=== PATIENT | female | born 1965 | race Caucasian/White ===

== ENCOUNTER 2017-05-16 12:30 | Day surgery (SDC) | payer OTHER ==
[~2017-05-16] VITALS: Ht 167.6 cm; Wt 70.1 kg
[~2017-05-16 12:30] MED LIST: 0.9% Sodium Chloride 1,000 ML IV SCH; CETI10CA PO; CYCL5TAB PO; FLUT9.9S NS; Sodium Chloride LOK Flush 10 mL Syringe IV PRN; fentaNYL-PF 50 mCg/mL 2 mL Inj IVPUSH PRN
[2017-05-16 14:00] VITALS: BP 111/69; PULSE 69; RESP 16; O2SAT 100
[2017-05-16 15:02] VITALS: BP 87/48; PULSE 68; RESP 14; O2SAT 97
[2017-05-16 15:10] VITALS: BP 105/65; PULSE 80; RESP 12; O2SAT 97
--- NOTE | 2017-05-16 16:03 | ENDO ---
[address] [address] ENDOSCOPY PROCEDURE PATIENT: GAL MILLER : 1965 MR#: [id number] ADMIT: 05/16/2017 JOB ID: [id number] DATE: 05/16/2017 PROCEDURE: Colonoscopy. INDICATIONS: Screening. The patient's ASA classification is 1. Mallampati score is 2. MEDICATIONS: 1. Versed 6 mg. 2. Fentanyl 100 mcg. INSTRUMENT USED: PCF H 180 AL PREPARATION QUALITY: Was good. PROCEDURE DETAILS: After informed consent was obtained, the patient was brought into the GI suite, where she was placed on oxygen via nasal cannula and monitored with continuous pulse oximeter, telemetry and blood pressure monitoring. A time-out was performed. Then, she was placed in the left lateral decubitus position and medications were administered for sedation. Digital rectal examination was performed, which was unremarkable. The colonoscope was then inserted into the rectum and advanced under direct visualization to the cecum, which was identified by the presence of the ileocecal valve and appendiceal orifice. Once the cecum was reached, the colonoscope was withdrawn back into the rectum as the mucosa and lumen were examined. In the rectum, retroflexion was performed. Following retroflexion, remaining air in the rectum was suctioned, and the procedure was completed. FINDINGS: 1. In the ascending colon, there was an approximately 4 mm sessile polyp that was removed with a cold snare. 2. In the transverse colon, there was approximately 3 mm sessile polyp that was removed with a cold snare. IMPRESSION: 1. Ascending colon polyp. 2. Transverse colon polyp. RECOMMENDATIONS: 1. Fiber rich diet. 2. Repeat colonoscopy pending polyp pathology results. COMPLICATIONS: None. ESTIMATED BLOOD LOSS: Less than 5 mL.
--- NOTE | 2017-05-19 12:08 | PATH ---
SURGICAL PATHOLOGY Attending Physician:Dannielle Espinoza CASE STATUS: Signed Out PATIENT NAME: GAL MILLER PID: [id number] : 1965 DATE COLLECTED:05/16/2017 00:00 SPECIMEN: 1: Colon, Polyp 2: Colon, Polyp CLINICAL HISTORY: 1). ASCENDING COLON POLYP 2). TRANSVERSE COLON POLYP FINAL DIAGNOSIS: 1.ASCENDING COLON POLYP: SESSILE SERRATED ADENOMA. 2.TRANSVERSE COLON POLYP: SESSILE SERRATED ADENOMA. ICD10 D12.2 GROSS DESCRIPTION: Received are two formalin-filled containers, both labeled with the patient' s name: 1. Received in formalin, labeled with the patient' s name and "ascending colon polyps", are multiple fragments of judd, soft tissue ranging in size from 0.1 x 0.1 x 0.1 cm to 0.2 x 0.1 x 0.1 cm. All fragments are totally submitted in cassette 1A. 2. Received in formalin, labeled with the patient' s name and "transverse colon polyp", are multiple fragments of judd, soft tissue ranging in size from less than 0.1 cm by less than 0.1 cm by less than 0.1 cm to 0.1 x 0.1 x 0.1 cm. All fragments are totally submitted in cassette 2A. ([id number]) MICRO DESCRIPTION: See diagnosis. ICD-9 CODES: CPT CODES: 1: 68560 2: 73701 Electronically Signed Out Malik Thorpe MD [facility] Pathology [facility] [address] [facility], [place] [address] Technical component performed at [facility], [facility] [address], [place], [address]
== END 2017-05-16 23:59 | disposition home or self-care (01) ==
LOC: END 12:30
PROVIDERS: ATTEND Internal Medicine Gastroenterology
DX: Z12.11 Encounter for screening for malignant neoplasm of colon (principal); D12.2 Benign neoplasm of ascending colon; D12.3 Benign neoplasm of transverse colon; E78.2 Mixed hyperlipidemia
CPT/HCPCS: 45385; 99153; G0500; J2250; J3010; J7030